=== PATIENT | male | born 1980 | race Caucasian/White ===

== ENCOUNTER 2020-07-31 05:13 | Emergency (ER) | payer OTHER ==
--- NOTE | 2020-07-31 05:23 | PDOC ---
History of Present Illness - General Stated Complaint: RECTAL PAIN Time Seen by Provider: 07/31/20 05:23 Past History - Medical History Allergies/Adverse Reactions: Allergies Allergy/AdvReac Type Severity Reaction Status Date / Time No Known Allergies Allergy Verified 07/31/20 05:31 Home Medications: Ambulatory Orders Meloxicam 15 mg PO DAILY 07/31/20 ED Treatment Course - LABORATORY CBC & Chemistry Diagram: 07/31/20 06:00 07/31/20 06:00 Medical Decision Making - Medical Decision Making 07/31/20 06:17 HPI: 39yo M hx hand arthritis presents from home c/o 2.5 days of L-sided rectal pain constant worse with sitting and worse with bowel movements. Endorses 1 day of similar pain 1mo ago that went away on own. Denies hx hemorrhoids, hx Crohns or UC or other GI disorders, FHx of GI disorders, CLP, rectal trauma or FB insertion, anal sex, diarrhea, constipation, straining, blood in stool, N/V, abdominal pain, F/C, CP, SOB, recent illness, testicular or penile sx, urinary sx, STIs. Endorses shaving occasionally. PE benign abdomen approx 1cm tender area of induration with central 1mm white area at 7 o'clock position 1cm from anus, no erythema or drainage or bleeding remaining rectal exam normal Ddx: folliculitis vs perianal abscess vs buttocks abscess. Also consider perirectal abscess, fistula, deep abscess/tracking, Crohn's, UC. No e/o cellulitis or systemic infection (though no s/s of systemic infection). -Pre-op labs -FOBT: negative -CT w/IV contrast -I&D: consider surgery consult [] CT -Pain management: Tylenol and viscous lidocaine. Consider morphine during I&D -Dispo: pending w/u and reassessment Discharge - Discharge Information Condition: Fair - Follow up/Referral Referrals: Kvng Barron MD [Primary Care Provider] - - Patient Discharge Instructions - Post Discharge Activity
--- OUTSIDE RECORDS SUMMARY | 2020-07-31 05:28 | XMS ---
:1980 Author Organization [facility] Support Name Relationship Address Phone SE Unavailable Unavailable Unavailable [employer] [id number] [facility] [id number] [place] [address] Re-disclosure Warning The records that you are about to access may contain information from federally- assisted alcohol or drug abuse programs. If such information is present, then the following federally mandated warning applies: This information has been disclosed to you from records protected by federal confidentiality rules (42 CFR part 2). The federal rules prohibit you from making any further disclosure of this information unless further disclosure is expressly permitted by the written consent of the person to whom it pertains or as otherwise permitted by 42 CFR part 2. A general authorization for the release of medical or other information is NOT sufficient for this purpose. The Federal rules restrict any use of the information to criminally investigate or prosecute any alcohol or drug abuse patient.The records that you are about to access may contain highly sensitive health information, the redisclosure of which is protected by Article 27-F of the [facility] Public Health law. If you continue you may haveaccess to information: Regarding HIV / AIDS; Provided by facilities licensed or operated by the [facility] Office of Mental Health; or Provided by the [facility] Office for People With Developmental Disabilities. If such information is present, then the following [facility] mandated warning applies: This information has been disclosed to you from confidential records which are protected by state law. State law prohibits you from making any further disclosure of this information without the specific written consent of the person to whom it pertains, or as otherwise permitted by law. Any unauthorized further disclosure in violation of state law may result in a fine or shelter sentence or both. A general authorization for the release of medical or other information is NOT sufficient authorization for further disclosure. Insurance Providers Payer name Policy type Policy ID Covered Covered democrat's Policy P sandy / Coverage democrat ID relationship to Saul Inf ormation type saul HIP EXCHANGE [id number] Results ID Date Data Source [id number] 07/14/2020 12:00:00 AM EDT [facility] Name Value Range Interpretation Code Description Data Gabby rce(s) Supporting Document(s ) COV2 [facility] This lab was ordered by CHERYL BARRERA ON and reported by [facility]. Procedure
[2020-07-31 05:31] VITALS: BMI 26.6
[2020-07-31] MEDS ORDERED: ACETAMINOPHEN 1000 MG/100 ML VIAL (NON FORMULARY) IVPB ONE (06:15)
--- NOTE | 2020-07-31 06:16 | PDOC ---
Attending Attestation - Resident Resident Name: BarberhugoHayley - ED Attending Attestation I have performed the following: I have examined & evaluated the patient, The case was reviewed & discussed with the resident, I agree w/resident's findings & plan - HPI HPI: 07/31/20 06:14 Pt comes with abscess at 7 o clock by his anus. He has never had this. He shaves his cleft area. This is an early folliculitis. - Physicial Exam PE: 07/31/20 06:15 HEENT normal Heart and lungs normal abd soft NT ND no flank pain normal extremities - Medical Decision Making 07/31/20 06:16 Pt will have labs and imaging study of the abscess US vs CT scan 07/31/20 06:28 Pt will be signed out to the day team Discharge - Discharge Information Problems reviewed: Yes Clinical Impression/Diagnosis: Abscess Condition: Fair Disposition: HOME - Additional Discharge Information Prescriptions: Clindamycin [Cleocin -] 450 mg PO Q8H #21 capsule Psyllium Husk (with Sugar) [Metamucil Packet] 3.4 gm PO ONCE #7 packet - Follow up/Referral Referrals: Boris Lanier MD [Staff Physician] - Kvng Barron MD [Primary Care Provider] - - Patient Discharge Instructions Additional Instructions: You were seen in the emergency department for an abscess. You received antibiotics . Your labs and imaging showed positive findings for an abscess. This can be caused by infection. You were given clindamycin in the emergency department and sent home with a prescription. Please follow up with your primary care physician and or Dr. Lanier our general surgeon on 08/01/20 regarding your visit to the emergency department. If you experience profound headache, fever, chills, nausea, vomiting or incontinence please return to the emergency department or call 911. - Post Discharge Activity
[2020-07-31] MEDS ORDERED: ACETAMINOPHEN INJECTION 100 ML IVPB ONE (06:29)
[2020-07-31] MEDS ORDERED: LIDOCAINE VISCOUS 2% ORAL/TOP 20 ML UNIT-DOSE CUP ONE (06:29)
[2020-07-31 06:34] LABS: BASO % 0.3 % (0-2.0); EOS % 0.8 % (0-4.5); HEMATOCRIT 44.3 % (35.4-49); HEMOGLOBIN 15.5 GM/dL (11.7-16.9); LYMPH % 12.9 % (8-40); MCHC 34.9 g/dl (32.0-35.9); MEAN CELL VOLUME 85.8 fl (80-96); MEAN PLT VOLUME 9.2 fl (7.5-11.1); MONO % 9.2 % (3.8-10.2); NEUT % 76.8 % (42.8-82.8); PLATELET COUNT 168 K/MM3 (134-434); RBC 5.17 M/mm3 (4.00-5.60); RDW 12.9 % (11.9-15.9); WHITE BLOOD COUNT 8.7 K/mm3 (4.0-10.0)
[2020-07-31] MEDS ORDERED: LIDOCAINE VISCOUS 2% ORAL/TOP 100 ML BOTTLE MM ONE (06:44)
[2020-07-31 07:01] LABS: BILIRUBIN,TOTAL 0.4 mg/dL (0.2-1); BLOOD UREA NITROGEN 9.8 mg/dL (7-18); CALCIUM 8.5 mg/dL (8.5-10.1); CREATININE 0.8 mg/dL (0.55-1.3); POTASSIUM 3.7 mmol/L (3.5-5.1); TOT PROT 7.6 g/dl (6.4-8.2)
--- NOTE | 2020-07-31 07:12 | PDOC ---
*Physical Exam - Vital Signs Last Vital Signs Temp Pulse Resp BP Pulse Ox 97.8 F 105 H 20 128/74 98 07/31/20 05:29 07/31/20 05:29 07/31/20 05:29 07/31/20 05:29 07/31/20 05:29 <Laurie Mariscal - Last Filed: 07/31/20 07:29> - Vital Signs Last Vital Signs Temp Pulse Resp BP Pulse Ox 97.8 F 105 H 20 128/74 98 07/31/20 05:29 07/31/20 05:29 07/31/20 05:29 07/31/20 05:29 07/31/20 05:29 - Physical Exam General Appearance: Yes: Nourished, Appropriately Dressed. No: Apparent Distress Respiratory/Chest: positive: Lungs Clear, Normal Breath Sounds. negative: Chest Tender, Respiratory Distress, Accessory Muscle Use, Crackles, Rales, Stridor, Wheezing Cardiovascular: positive: Regular Rhythm, Regular Rate. negative: Edema, JVD, Murmur Gastrointestinal/Abdominal: positive: Normal Bowel Sounds, Flat, Soft. negative: Tender, Distended, Guarding, Rebound, Tenderness Rectal Exam: positive: other (1cm indurated abcess, no drainage, white area in the center.) Musculoskeletal: positive: Normal Inspection. negative: CVA Tenderness Extremity: positive: Normal Capillary Refill, Normal Inspection. negative: Tender, Swelling, Calf Tenderness Integumentary: positive: Normal Color, Dry, Warm Neurologic: negative: Fully Oriented, Alert, Normal Mood/Affect, Normal Response <Nestor Yan - Last Filed: 07/31/20 14:04> ED Treatment Course - LABORATORY CBC & Chemistry Diagram: 07/31/20 06:00 07/31/20 06:00 - ADDITIONAL ORDERS Additional order review: Laboratory Results 07/31/20 07/31/20 07/31/20 06:53 06:00 06:00 PT with INR 11.50 INR 0.97 PTT (Actin FS) Sodium 139 Potassium 3.7 Chloride 107 Carbon Dioxide 28 Anion Gap 4 L BUN 9.8 Creatinine 0.8 Est GFR (CKD-EPI)AfAm 132.27 Est GFR (CKD-EPI)NonAf 114.12 Random Glucose 105 Calcium 8.5 Total Bilirubin 0.4 AST 18 ALT 26 Alkaline Phosphatase 86 Total Protein 7.6 Albumin 4.0 Stool Occult Blood Blood Type O NEGATIVE Antibody Screen Negative 07/31/20 07/31/20 06:00 06:00 PT with INR Cancelled INR Cancelled PTT (Actin FS) Cancelled Sodium Potassium Chloride Carbon Dioxide Anion Gap BUN Creatinine Est GFR (CKD-EPI)AfAm Est GFR (CKD-EPI)NonAf Random Glucose Calcium Total Bilirubin AST ALT Alkaline Phosphatase Total Protein Albumin Stool Occult Blood Negative Blood Type Antibody Screen 07/31/20 06:00 RBC 5.17 MCV 85.8 MCHC 34.9 RDW 12.9 MPV 9.2 Neutrophils % 76.8 Lymphocytes % 12.9 Monocytes % 9.2 Eosinophils % 0.8 Basophils % 0.3 - Medications Given in the ED: ED Medications Discontinued Medications Generic Name Dose Route Start Last Admin Trade Name Freq PRN Reason Stop Dose Admin Acetaminophen 1,000 mg 07/31/20 06:15 07/31/20 06:42 Ofirmev Injection - IVPB 07/31/20 06:16 1,000 mg ONCE ONE Administration Lidocaine HCl 15 ml 07/31/20 06:44 07/31/20 06:46 Xylocaine 2% Viscous MM 07/31/20 06:45 15 ml ONCE ONE Administration <Laurie Mariscal - Last Filed: 07/31/20 07:29> - LABORATORY CBC & Chemistry Diagram: 07/31/20 06:00 07/31/20 06:00 - ADDITIONAL ORDERS Additional order review: Laboratory Results 07/31/20 07/31/20 07/31/20 06:00 06:00 06:00 PT with INR Cancelled INR Cancelled PTT (Actin FS) Cancelled Sodium 139 Potassium 3.7 Chloride 107 Carbon Dioxide 28 Anion Gap 4 L BUN 9.8 Creatinine 0.8 Est GFR (CKD-EPI)AfAm 132.27 Est GFR (CKD-EPI)NonAf 114.12 Random Glucose 105 Calcium 8.5 Total Bilirubin 0.4 AST 18 ALT 26 Alkaline Phosphatase 86 Total Protein 7.6 Albumin 4.0 Stool Occult Blood Negative 07/31/20 06:00 RBC 5.17 MCV 85.8 MCHC 34.9 RDW 12.9 MPV 9.2 Neutrophils % 76.8 Lymphocytes % 12.9 Monocytes % 9.2 Eosinophils % 0.8 Basophils % 0.3 - Medications Given in the ED: ED Medications Discontinued Medications Generic Name Dose Route Start Last Admin Trade Name Guerrero PRN Reason Stop Dose Admin Acetaminophen 1,000 mg 07/31/20 06:15 07/31/20 06:42 Ofirmev Injection - IVPB 07/31/20 06:16 1,000 mg ONCE ONE Administration Lidocaine HCl 15 ml 07/31/20 06:44 07/31/20 06:46 Xylocaine 2% Viscous MM 07/31/20 06:45 15 ml ONCE ONE Administration <Nestor Yan - Last Filed: 07/31/20 14:04> Medical Decision Making - Medical Decision Making 39 year old male with no PMH presented to ED with rectal pain x2 days. Physical examination significant for tenderness + induration at the 7 o'clock position. Bedside ultrasound showed a [id number] border, mixed echogenicity. Initial Vital Signs Temp Pulse Resp BP Pulse Ox 97.8 F 105 H 20 128/74 98 07/31/20 05:29 07/31/20 05:29 07/31/20 05:29 07/31/20 05:29 07/31/20 05:29 Afebrile. Tachycardic. No tachypnea. No hypotension. No hypoxia on room air. CBC WBC 8.7 K/mm3 (4.0-10.0) 07/31/20 06:00 RBC 5.17 M/mm3 (4.00-5.60) 07/31/20 06:00 Hgb 15.5 GM/dL (11.7-16.9) 07/31/20 06:00 Hct 44.3 % (35.4-49) 07/31/20 06:00 MCV 85.8 fl (80-96) 07/31/20 06:00 MCH 30.0 pg (25.7-33.7) 07/31/20 06:00 MCHC 34.9 g/dl (32.0-35.9) 07/31/20 06:00 RDW 12.9 % (11.9-15.9) 07/31/20 06:00 Plt Count 168 K/MM3 (134-434) 07/31/20 06:00 MPV 9.2 fl (7.5-11.1) 07/31/20 06:00 Absolute Neuts (auto) 6.7 K/mm3 (1.5-8.0) 07/31/20 06:00 Neutrophils % 76.8 % (42.8-82.8) 07/31/20 06:00 Lymphocytes % 12.9 % (8-40) 07/31/20 06:00 Monocytes % 9.2 % (3.8-10.2) 07/31/20 06:00 Eosinophils % 0.8 % (0-4.5) 07/31/20 06:00 Basophils % 0.3 % (0-2.0) 07/31/20 06:00 Nucleated RBC % 0 % (0-0) 07/31/20 06:00 No leukocytosis. No anemia. CMP Sodium 139 mmol/L (136-145) 07/31/20 06:00 Potassium 3.7 mmol/L (3.5-5.1) 07/31/20 06:00 Chloride 107 mmol/L (98-107) 07/31/20 06:00 Carbon Dioxide 28 mmol/L (21-32) 07/31/20 06:00 Anion Gap 4 MMOL/L (8-16) L 07/31/20 06:00 BUN 9.8 mg/dL (7-18) 07/31/20 06:00 Creatinine 0.8 mg/dL (0.55-1.3) 07/31/20 06:00 Est GFR (CKD-EPI)AfAm 132.27 07/31/20 06:00 Est GFR (CKD-EPI)NonAf 114.12 07/31/20 06:00 Random Glucose 105 mg/dL (74-106) 07/31/20 06:00 Calcium 8.5 mg/dL (8.5-10.1) 07/31/20 06:00 Total Bilirubin 0.4 mg/dL (0.2-1) 07/31/20 06:00 AST 18 U/L (15-37) 07/31/20 06:00 ALT 26 U/L (13-61) 07/31/20 06:00 Alkaline Phosphatase 86 U/L (45-117) 07/31/20 06:00 Total Protein 7.6 g/dl (6.4-8.2) 07/31/20 06:00 Albumin 4.0 g/dl (3.4-5.0) 07/31/20 06:00 No electrolyte disturbances. No SUKUMAR. No transaminitis. Stool occult for blood negative. Pt to have CT abdomen/pelvis with IV contrast for further evaluation of possible deep space abscess. <Laurie Mariscal - Last Filed: 07/31/20 07:29> Discharge <Laurie Mariscal - Last Filed: 07/31/20 07:29> - Discharge Information Problems reviewed: Yes - Admission No <Nestor Yan - Last Filed: 07/31/20 14:04> - Discharge Information Clinical Impression/Diagnosis: Abscess Condition: Fair - Additional Discharge Information Prescriptions: Clindamycin [Cleocin -] 450 mg PO Q8H #21 capsule Psyllium Husk (with Sugar) [Metamucil Packet] 3.4 gm PO ONCE #7 packet - Follow up/Referral Referrals: Kvng Barron MD [Primary Care Provider] - Boris Lanier MD [Staff Physician] - - Patient Discharge Instructions Additional Instructions: You were seen in the emergency department for an abscess. You received antibiotics . Your labs and imaging showed positive findings for an abscess. This can be caused by infection. You were given clindamycin in the emergency department and sent home with a prescription. Please follow up with your primary care physician and or Dr. Lanier our general surgeon on 08/01/20 regarding your visit to the emergency department. If you experience profound headache, fever, chills, nausea, vomiting or incontinence please return to the emergency department or call 911. - Post Discharge Activity
[2020-07-31 07:18] LABS: INR 0.97 (0.83-1.09); PROTHROMBIN TIME (PATIENT) 11.5 SEC (9.7-13.0)
[2020-07-31] MEDS ORDERED: SODIUM CHLORIDE 1,000 ML IV STA (07:32)
[2020-07-31] MEDS ORDERED: CLINDAMYCIN IVPB 300 MG in DEXTROSE 5%-WATER - 48 ML IVPB ONE (14:03)
[2020-07-31] MEDS ORDERED: CLINDAMYCIN HCL 150 MG CAPSULE (FP) ONE (14:06)
[2020-07-31] MEDS ORDERED: CLINDAMYCIN PHOSPHATE 600 MG/4 ML VIAL ONE (14:08)
[2020-07-31 14:18] VITALS: BP 109/75; PULSE 91; TEMP 98.3
== END 2020-07-31 14:41 | disposition home or self-care (01) ==
LOC: JER 05:13
PROC: 3E03329 Introduction of Other Anti-infective into Peripheral Vein, Percutaneous Approach (ICD-10-PCS; principal; 2020-07-31)
PROC: 3E033GC Introduction of Other Therapeutic Substance into Peripheral Vein, Percutaneous Approach (ICD-10-PCS; 2020-07-31)
PROC: 3E0337Z Introduction of Electrolytic and Water Balance Substance into Peripheral Vein, Percutaneous Approach (ICD-10-PCS; 2020-07-31)
DX: L02.31 Cutaneous abscess of buttock (principal)
CPT/HCPCS: 36415; 74177-TC; 80053; 82272; 85025; 85610; 86850; 86900; 86901; 99285-25; J0131; Q9967